=== PATIENT | female | born 1995 | race African-American/Black ===

== ENCOUNTER 2019-01-04 12:16 | Emergency (ER) | payer MEDICAID ==
[~2019-01-04] VITALS: Ht 154.9 cm; Wt 81.8 kg
[~2019-01-04 12:16] MED LIST: NO MEDS
[2019-01-04] MEDS ORDERED: BENZONATATE 100 MG CAPSULE PO ONE (13:30)
[2019-01-04 14:30] VITALS: BP 127/80
== END 2019-01-04 14:50 | disposition home or self-care (01) ==
LOC: EMS 12:17
DX: J06.9 Acute upper respiratory infection, unspecified (principal); R03.0 Elevated blood-pressure reading, without diagnosis of hypertension
CPT/HCPCS: 87430

== ENCOUNTER 2020-01-19 16:37 | Emergency (ER) | payer MEDICAID ==
[~2020-01-19] VITALS: Ht 157.5 cm; Wt 79.5 kg
[2020-01-19] MEDS ORDERED: KETOROLAC TROMETHAMINE 30 MG/ML VIAL IM ONE (18:15)
[2020-01-19 18:39] VITALS: BP 125/71
== END 2020-01-19 18:42 | disposition home or self-care (01) ==
LOC: EMS 16:39
DX: S29.012A Strain of muscle and tendon of back wall of thorax, initial encounter (principal); F17.210 Nicotine dependence, cigarettes, uncomplicated; X50.0XXA Overexertion from strenuous movement or load, initial encounter; Y93.89 Activity, other specified; Y92.89 Other specified places as the place of occurrence of the external cause; Y99.8 Other external cause status
CPT/HCPCS: 96372; 99283; 99406; J1885

== ENCOUNTER 2020-07-07 15:30 | Emergency (ER) | payer MEDICAID ==
[~2020-07-07] VITALS: Ht 167.6 cm; Wt 86.4 kg
[2020-07-07 17:21] LABS: BASOPHILS % (AUTO) 0.3 % (0.0-2.0); EOSINOPHILS % (AUTO) 0.9 % (1.0-6.0); HEMATOCRIT 38.5 % (36-46); HEMOGLOBIN 12.9 g/dL (12.0-16.0); LYMPHOCYTES # (AUTO) 2.6 K/uL (1.0-4.8); LYMPHOCYTES % (AUTO) 32.4 % (22.0-44.0); MEAN CORPUSCULAR HEMOGLOBIN 29.6 pg (26.0-34.0); MEAN CORPUSCULAR HGB CONC 33.4 G/dL (31.0-37.0); MEAN CORPUSCULAR VOLUME 89 fL (80-100); MONOCYTES # (AUTO) 0.5 K/uL (0.1-1.0); MONOCYTES % (AUTO) 6.6 % (2.0-9.0); NEUTROPHILS # (AUTO) 4.7 K/uL (1.8-7.7); NEUTROPHILS % (AUTO) 59.8 % (40.0-70.0); PLATELET COUNT (AUTO) 291 K/uL (150-450); RED BLOOD CELL COUNT(AUTO) 4.34 MIL/uL (4.00-5.20); RED CELL DISTRIBUTION WIDTH 13.7 % (11.5-14.5)
[2020-07-07 17:43] LABS: ANION GAP 4 mmol/L (8-16); CALCIUM, TOTAL 9.5 mg/dL (8.8-10.5); CARBON DIOXIDE 31 mmol/L (22-29); CHLORIDE 101 mmol/L (98-107); CREATININE 1.03 mg/dL (0.60-1.30); GLOMERULAR FILTR. RATE CALC > 60 mL/min (>60); GLUCOSE,RANDOM 93 mg/dL (70-110); POTASSIUM 3.7 mmol/L (3.5-5.1); SODIUM SERUM 136 mmol/L (136-145); UREA NITROGEN, BLOOD 12 mg/dL (7-18)
[2020-07-07 17:54] LABS: ALANINE AMINOTRANSFERASE 90 U/L (12-78); ALBUMIN 3.6 g/dL (3.4-5.0); ALKALINE PHOSPHATASE 70 U/L (46-116); ASPARTATE AMINOTRANSFERASE 30 U/L (15-37); BILIRUBIN,TOTAL 0.2 mg/dL (0.1-1.0); HCG,QUANTITATIVE < 1 mIU/mL (0-6); LIPASE 88 U/L (73-393); TOTAL PROTEIN, SERUM 7.5 g/dL (6.4-8.2)
[2020-07-07 18:15] LABS: APPEARANCE,URINE CLOUDY (CLEAR); BILIRUBIN,URINE NEGATIVE (NEGATIVE); GLUCOSE, URINE (UA) NEGATIVE (NEGATIVE); KETONES,URINE NEGATIVE (NEGATIVE); LEUKOCYTE ESTERASE ,URINE NEGATIVE (NEGATIVE); NITRATE,URINE NEGATIVE (NEGATIVE); OCCULT BLOOD,URINE NEGATIVE (NEGATIVE); PH,URINE 6.5 (5.0-8.0); PROTEIN,URINE NEGATIVE (NEGATIVE); UROBILINOGEN,URINE 0.2 mg/dL (<=1.0)
[2020-07-07 19:30] VITALS: BP 124/85
[2020-07-07] MEDS ORDERED: IBUPROFEN 600 MG TABLET PO ONE (19:30)
== END 2020-07-07 19:50 | disposition home or self-care (01) ==
LOC: EMS 15:31
DX: R10.31 Right lower quadrant pain (principal); F17.210 Nicotine dependence, cigarettes, uncomplicated

== ENCOUNTER 2024-09-21 14:22 | Emergency (ER) | payer MEDICAID ==
[~2024-09-21] VITALS: Ht 160 cm; Wt 88.6 kg
[2024-09-21 14:35] VITALS: TEMP 98.4
[2024-09-21] MEDS ORDERED: ETON68IM4 SD (14:37)
[2024-09-21] MEDS: METHOCARBAMOL 500 MG TABLET PO ONE (16:20)
[2024-09-21] MEDS: ACETAMINOPHEN 500 MG TABLET PO ONE (16:20)
[2024-09-21] MEDS: IBUPROFEN 600 MG TABLET PO ONE (16:20)
[2024-09-21] MEDS ORDERED: ACET-66 PO (16:30)
[2024-09-21] MEDS ORDERED: METH-659 PO (16:30)
[2024-09-21] MEDS ORDERED: IBUP-1554 PO (16:30)
[2024-09-21 17:04] VITALS: BP 129/89; PULSE 65; RESP 18; O2SAT 98
== END 2024-09-21 17:06 | disposition home or self-care (01) ==
LOC: EMS 14:22
DX: S13.4XXA Sprain of ligaments of cervical spine, initial encounter (principal); F17.210 Nicotine dependence, cigarettes, uncomplicated; X58.XXXA Exposure to other specified factors, initial encounter; Y93.89 Activity, other specified; Y92.89 Other specified places as the place of occurrence of the external cause; Y99.8 Other external cause status
CPT/HCPCS: 99284; Z7502; Z7610

== ENCOUNTER 2024-11-16 09:58 | Emergency (ER) | payer MEDICAID ==
[~2024-11-16] VITALS: Ht 154.9 cm; Wt 85.5 kg
[~2024-11-16 09:58] MED LIST changes: +ACET-66 PO; +ETON68IM4 SD; +IBUP-1554 PO; +METH-659 PO; -NO MEDS
[2024-11-16 10:04] VITALS: BP 105/71; PULSE 89; RESP 18; TEMP 99.3; O2SAT 98
[2024-11-16 10:14] LABS: COVID AG,FIA SOURCE NASAL SWAB
[2024-11-16 10:57] LABS: RAPID GROUP A STREP POSITIVE (NEGATIVE)
[2024-11-16 11:00] LABS: SARS-COV2 (COVID) ANTIGEN,FIA Negative (Negative)
[2024-11-16 11:01] LABS: INFLUENZA TYPE A NEGATIVE FOR TYPE A (NEGATIVE); INFLUENZA TYPE B NEGATIVE FOR TYPE B (NEGATIVE)
[2024-11-16] MEDS ORDERED: CEPH-558 PO (11:25)
[2024-11-16] MEDS ORDERED: GUAIFDM PO (11:25)
== END 2024-11-16 11:36 | disposition home or self-care (01) ==
LOC: EMS 09:59
DX: J02.0 Streptococcal pharyngitis (principal); Z20.822 Contact with and (suspected) exposure to COVID-19
CPT/HCPCS: 87430; 87804; 99283

== ENCOUNTER 2024-12-02 13:00 | Emergency (ER) | payer MEDICAID ==
[~2024-12-02] VITALS: Ht 157.5 cm; Wt 85.0 kg
[~2024-12-02 13:00] MED LIST changes: +CEPH-558 PO; +GUAIFDM PO; -METH-659 PO
[2024-12-02 13:25] VITALS: BP 122/84; PULSE 80; RESP 16; TEMP 98.4; O2SAT 98
[2024-12-02 13:33] LABS: COVID AG,FIA SOURCE NASAL SWAB
[2024-12-02 13:51] LABS: RAPID GROUP A STREP NEGATIVE (NEGATIVE)
[2024-12-02 13:58] LABS: INFLUENZA TYPE A NEGATIVE FOR TYPE A (NEGATIVE); INFLUENZA TYPE B NEGATIVE FOR TYPE B (NEGATIVE); SARS-COV2 (COVID) ANTIGEN,FIA Negative (Negative)
[2024-12-02] MEDS ORDERED: IBUP-1492 PO (14:58)
[2024-12-02] MEDS ORDERED: ACET-3385 PO (14:58)
[2024-12-02] MEDS ORDERED: AMOX-457 PO (14:58)
[2024-12-02] MEDS: ACETAMINOPHEN 500 MG TABLET PO ONE (15:05)
[2024-12-02] MEDS: AMOX TR/POT CLAV 875 MG/125 MG TABLET PO ONE (15:05)
== END 2024-12-02 15:12 | disposition home or self-care (01) ==
LOC: EMS 13:10
DX: J03.90 Acute tonsillitis, unspecified (principal); Z87.891 Personal history of nicotine dependence; Z20.822 Contact with and (suspected) exposure to COVID-19
CPT/HCPCS: 87430; 87804; 99283